=== PATIENT | female | born 1965 | race Caucasian/White ===

== ENCOUNTER 2017-07-12 07:55 | Observation (INO) | payer BC, OTHER ==
[~2017-07-12] VITALS: Ht 167.6 cm; Wt 128.8 kg
[~2017-07-12 07:55] MED LIST: ALLOPURINOL300 MG PO; ATENOLOL50 MG PO; COLCRYS0.6 MG PO; CYCLOBENZAPRINE5 MG PEG; GLUCOSAMINE CH1 EAC5 PO; HYDROCHLOROTHIA25 MG PO; LISINOPRIL10 MG PO; MOBIC15 MG OD; NORCO 5-325 TA1 EACH PO; OMEPRAZOLE40 MG PO
[2017-07-12] MEDS ORDERED: ASPIRIN 81 MG CHEW TAB PO ONE (08:30)
[2017-07-12 08:42] LABS: BASOPHILS # (AUTO) 0.1 (0.0-0.1); BASOPHILS % 0.8 % (0.0-1.0); HEMATOCRIT 40.6 % (34.2-44.1); HEMOGLOBIN 14.2 g/dL (12.0-16.0); LYMPHOCYTES % 27.1 % (18.0-39.1); MEAN CORPUSCULAR HEMOGLOBIN 28.6 pg (28-32); MEAN CORPUSCULAR VOLUME 81.9 fL (81-99); MONOCYTES # (AUTO) 0.5 (0.2-0.8); MONOCYTES % 6.3 % (4.4-11.3); NEUTROPHILS # (AUTO) 4.8 (2.1-6.9); NEUTROPHILS % 65.5 % (38.7-80.0); PLATELET COUNT 282 x10e3/uL (140-360); RED BLOOD COUNT 4.96 x10e6/uL (3.6-5.1); RED CELL DISTRIBUTION WIDTH 13.2 % (11.7-14.4)
[2017-07-12 08:59] LABS: ALANINE AMINOTRANSFERASE 29 IU/L (0-55); ALBUMIN 3.8 g/dL (3.5-5.0); ALBUMIN/GLOBULIN RATIO 1.2 (0.8-2.0); ALKALINE PHOSPHATASE 97 IU/L (40-150); ANION GAP 13.6 mmol/L (8-16); BLOOD UREA NITROGEN 12 mg/dL (7-26); BUN/CREATININE RATIO 20 (6-25); CALCIUM 9.9 mg/dL (8.4-10.2); CARBON DIOXIDE 28 mmol/L (22-29); CHLORIDE 106 mmol/L (98-107); CREATINE KINASE 42 IU/L (29-168); CREATININE, SERUM 0.59 mg/dL (0.57-1.11); EST GLOMERULAR FILTRATION RATE > 60 ML/MIN (60-); GLUCOSE 115 mg/dL (74-118); POTASSIUM 3.6 mmol/L (3.5-5.1); SODIUM 144 mmol/L (136-145)
--- NOTE | 2017-07-12 09:14 | Diagnostic Imaging Report ---
PROCEDURE: CHEST SINGLE (PORTABLE) COMPARISON: Patients [facility], DX, CHEST 2 VIEWS, 08/27/2016, 7:10. INDICATIONS: CHEST PAIN FINDINGS: LUNGS: No consolidations or edema. PLEURA: No effusions or pneumothorax. HEART \T\ MEDIASTINUM: The heart is within normal size-limits. BONES \T\ SOFT TISSUES: No acute findings. There are degenerative changes of the spine. CONCLUSION: No acute thoracic abnormality. Rahul Hussein D.O. Dictated by: Rahul Hussein D.O. on 07/12/2017 at 9:16 Electronically approved by: Rahul Hussein D.O. on 07/12/2017 at 9:16
[2017-07-12] MEDS ORDERED: METOPROLOL TART25 MG PO (10:17)
[2017-07-12] MEDS ORDERED: ZINC30 M1 PO (10:17)
[2017-07-12] MEDS ORDERED: MOBIC7.5 MG PO (10:17)
[2017-07-12] MEDS ORDERED: CO Q10200 MG PO (10:17)
[2017-07-12] MEDS ORDERED: COLCRYS0.6 MG PO (10:17)
[2017-07-12] MEDS ORDERED: VITAMIN B-121000 MCG PO (10:17)
[2017-07-12] MEDS ORDERED: MUPIROCIN22 GM TOP (10:17)
[2017-07-12] MEDS ORDERED: LYRICA75 MG PO (10:17)
[2017-07-12] MEDS ORDERED: ALEVE220 M1 PO (10:17)
[2017-07-12] MEDS ORDERED: VITAMIN D3400 UNIT (10:17)
[2017-07-12] MEDS ORDERED: TYLENOL EXTRA500 MG PO (10:17)
[2017-07-12] MEDS ORDERED: LIDOCAINE-PRILO30 GM (10:17)
--- OUTSIDE RECORDS SUMMARY | 2017-07-12 10:39 | XMS REPORT ---
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 Allergies, Adverse Reactions, Alerts This patient has no known allergies or adverse reactions. Medications This patient has no known medications. Results Test Description Test Time Test Comments Text Results Atomic Results Result Comments CHEST SINGLE (PORTABLE) [place] [id number] Patient Name: DAVID MALAVE MR #: [id number] : 1965 Age/Sex: 51/F Req #: [id number] Adm Physician: Ordered by: GAVIN MONTEIRO MD Report #: [id number] Location: ER Room/Bed: Procedure: [id number] DX/CHEST SINGLE (PORTABLE) Exam Date: 07/12/17 Exam Time: 0830 REPORT STATUS: Signed PROCEDURE: CHEST SINGLE (PORTABLE) COMPARISON: [facility], DX, CHEST 2 VIEWS , 08/27/2016, 7:10. INDICATIONS: CHEST PAIN FINDINGS: LUNGS: No consolidations or edema. PLEURA: No effusions or pneumothorax. HEART T MEDIASTINUM: The heart is within normal size-limits. BONES T SOFT TISSUES: No acute findings. There are degenerative changes of the spine. CONCLUSION: No acute thoracic abnormality. Aye Turner D.O. Dictated by: Aye Turner D.O. on 07/12/2017 at 9: 16 Electronically approved by: Aye Turner D.O. on 07/12/2017 at 9:16 Dictated By: AYE TURNER DO 5 Transcribed By: SOFYA on 07/12/17915 COPY TO: GAVIN MONTEIRO MD
[2017-07-12 11:55] VITALS: BP 144/67
[2017-07-12 12:00] VITALS: BP 144/67
[2017-07-12 12:27] VITALS: BP 144/67
[2017-07-12] MEDS ORDERED: METOCLOPRAMIDE HCL 10 MG/2ML VIAL IV SCH (14:00)
[2017-07-12] MEDS ORDERED: HYDRALAZINE HCL 20 MG/ML VIAL IV PRN (16:00)
[2017-07-12] MEDS ORDERED: LISINOPRIL 10 MG TAB PO SCH (16:00)
[2017-07-12] MEDS: METOCLOPRAMIDE HCL 10 MG TAB PO SCH (16:30)
[2017-07-12 17:07] VITALS: BP 115/59
[2017-07-12] MEDS: FAMOTIDINE 20 MG TAB PO SCH (17:30)
[2017-07-12 17:36] LABS: CREATINE KINASE 33 IU/L (29-168)
--- NOTE | 2017-07-12 17:37 | History and Physical ---
PRIMARY CARE PROVIDER: Dr. Patricio Mandel. CHIEF COMPLAINT: Chest pain. HISTORY OF PRESENT ILLNESS: Ms. Galicia is a 51-year-old lady who comes in complaining of chest pain that has been on and off for the last 2 weeks. Sometimes it seems to be exacerbated by activity or exertion and better with rest. She does have a little shortness of breath associated with it. She also admits to acid reflux as well. She does have a history of hypertension and a very strong family history of heart disease. REVIEW OF SYSTEMS: She denies fever, chills or weight loss. She denies sinus congestion or sore throat. She has chest pain as noted. No palpitations, no diaphoresis. She has had some mild dyspnea with exertion. She denies wheezing or cough or baseline shortness of breath at rest. She denies abdominal pain, nausea, vomiting or melena. She does have gastroesophageal reflux. She denies dysuria or flank pain. She denies rash or pruritus. She denies joint pain or swelling. She does have arthritis, chronic gouty arthritis but currently is asymptomatic. She denies bleeding or bruising. She denies headache, vertigo or loss of consciousness. She denies depression, agitation, homicide or suicidal ideation. PAST MEDICAL HISTORY: Significant for longstanding hypertension, osteoarthritis and gout. MEDICATIONS: Regular medications include Allopurinol 300 mg daily, lisinopril 20 mg daily, Lyrica 75 mg at bedtime, Tylenol as needed, colchicine as needed for acute gout flare-ups, hydrochlorothiazide 25 mg daily, meloxicam 7.5 mg daily, metoprolol 25 mg daily, omeprazole 40 mg daily. She also takes CoQ10, Naprosyn as needed and zinc picolinate. ALLERGIES: She has no known drug allergies. FAMILY HISTORY: Significant for father dying at age 68 from a myocardial infarction, sudden cardiac at age 68. Her mother is alive in her 70s with significant coronary artery disease, has had multiple stents and has atrial fibrillation. She has a couple of siblings that have hypertension but no evidence of heart disease yet. She has had surgery on her left Achilles tendon. She denies any other surgery. SOCIAL HISTORY: The patient is . Yakut is her primary language. She does not smoke, drink or use illegal drugs. Has never smoked and she is independently functioning. PHYSICAL EXAM PSYCHIATRIC: She is alert and oriented times 3 with normal mood and affect. CONSTITUTIONAL: She has a normal body habitus. Is in no acute distress. VITAL SIGNS: Blood pressure 144/67. Pulse 82 and regular. Respiratory rate 20. O2 sat 97% on room air. Temperature 95.2. HEENT: Head is atraumatic. Eyes are anicteric with clear conjunctiva. Ears and nares are without erythema or discharge. Oropharynx is clear. NECK: Is supple. No mass or thyromegaly. LYMPHATIC SYSTEM: She has no palpable cervical, axillary or inguinal adenopathy. CARDIOVASCULAR: Her heart has a regular rate rhythm without murmur or extra heart sound. She has no carotid bruit. She has no peripheral edema. She has palpable dorsal pedal pulses. RESPIRATORY: Lungs are clear to auscultation and percussion with normal respiratory effort. GASTROINTESTINAL: Her abdomen is soft without organomegaly, masses or tenderness. She has normal bowel sounds present. CUTANEOUS: Her skin is warm and dry to the touch with no rash or skin breakdown. MUSCULOSKELETAL: Her joints are normal alignment without erythema or swelling. She has no calf tenderness. NEUROLOGIC: Exam is nonfocal with intact cranial nerves and no motor or sensory deficits. DIAGNOSTIC STUDIES: Chest x-ray shows no acute disease. EKG is completely normal. First troponin is less than 0.001. Her BNP is 15.7. Her chemistry shows normal electrolytes, CO2 28, creatinine 0.59, BUN 12 for a normal GFR, calcium is 9.9, glucose is 115. Transaminases, bilirubin and alk phos are normal. CBC shows a white count of 7.33 with normal differential, hemoglobin 14.2, hematocrit 40.6 and platelet count 282,000. IMPRESSION AND PLAN 1. Chest pain, rule out acute coronary syndrome. The patient will get serial cardiac enzymes. She has been started on aspirin 325 mg daily. Will check a lipid profile and consult cardiology for a nuclear stress test. 2. Hypertension. Well controlled on current medications. Will continue lisinopril and hydrochlorothiazide as well as p.r.n. hydralazine as needed. 3. Gastroesophageal reflux disease. The patient will be started on, instead of omeprazole, will give the patient Pepcid and Reglan twice a day before meals. 4. Gout. The patient is asymptomatic at the moment. Will continue her allopurinol. 5. For prophylaxis the patient will be using sequential compression devices for deep vein thrombosis prophylaxis and Pepcid for gastrointestinal prophylaxis. Job#: [id number]
[2017-07-12 20:00] VITALS: BP 138/79
[2017-07-12] MEDS ORDERED: PREGABALIN 75 MG CAP PO SCH (21:00)
[2017-07-13] VITALS: BP 131/75
[2017-07-13 03:19] LABS: CREATINE KINASE 29 IU/L (29-168)
[2017-07-13 04:00] VITALS: BP 145/88
[2017-07-13 05:58] LABS: BASOPHILS # (AUTO) 0.1 (0.0-0.1); BASOPHILS % 0.6 % (0.0-1.0); HEMATOCRIT 37.3 % (34.2-44.1); LYMPHOCYTES # (AUTO) 2.1 (1.0-3.2); LYMPHOCYTES % 26.2 % (18.0-39.1); MEAN CORPUSCULAR HEMOGLOBIN 28.8 pg (28-32); MEAN CORPUSCULAR HGB CONC 34.9 g/dL (31-35); MEAN CORPUSCULAR VOLUME 82.5 fL (81-99); MONOCYTES # (AUTO) 0.5 (0.2-0.8); MONOCYTES % 5.7 % (4.4-11.3); NEUTROPHILS # (AUTO) 5.4 (2.1-6.9); NEUTROPHILS % 67.3 % (38.7-80.0); PLATELET COUNT 241 x10e3/uL (140-360); RED BLOOD COUNT 4.52 x10e6/uL (3.6-5.1); RED CELL DISTRIBUTION WIDTH 13.1 % (11.7-14.4)
[2017-07-13 06:17] LABS: ANION GAP 13.2 mmol/L (8-16); BLOOD UREA NITROGEN 12 mg/dL (7-26); BUN/CREATININE RATIO 20 (6-25); CALCIUM 9.3 mg/dL (8.4-10.2); CARBON DIOXIDE 28 mmol/L (22-29); CHLORIDE 109 mmol/L (98-107); CREATININE, SERUM 0.59 mg/dL (0.57-1.11); EST GLOMERULAR FILTRATION RATE > 60 ML/MIN (60-); GLUCOSE 115 mg/dL (74-118); MAGNESIUM 1.4 MG/DL (1.3-2.1); POTASSIUM 4.2 mmol/L (3.5-5.1); SODIUM 146 mmol/L (136-145)
[2017-07-13 06:31] LABS: CHOL/HDL RATIO 4.6 (3.0-3.6)
[2017-07-13 06:39] LABS: THYROID STIMULATING HORMONE 0.747 uIU/mL (0.350-4.940)
[2017-07-13 07:30] VITALS: BP 145/88
[2017-07-13 07:31] VITALS: BP 134/86
[2017-07-13] MEDS: METOCLOPRAMIDE HCL 10 MG TAB PO SCH (08:30)
[2017-07-13] MEDS: FAMOTIDINE 20 MG TAB PO SCH (08:30)
[2017-07-13] MEDS ORDERED: LISINOPRIL 20 MG TAB PO SCH (09:00)
[2017-07-13] MEDS ORDERED: PANTOPRAZOLE 40 MG 10ML VIAL IV SCH (09:00)
[2017-07-13] MEDS ORDERED: HYDROCHLOROTHIAZIDE 25 MG TAB PO SCH (09:00)
[2017-07-13] MEDS ORDERED: ASPIRIN 325 MG TAB EC PO SCH (09:00)
[2017-07-13] MEDS ORDERED: ALLOPURINOL 300 MG TAB PO SCH (09:00)
--- NOTE | 2017-07-13 09:00 | Consultation ---
DATE OF CONSULTATION: July 12, 2017 CARDIOLOGY CONSULTATION REASON FOR CONSULTATION: Chest pain. HPI: This is a morbidly obese 51-year-old female that presented with chest pain. According to the patient, she has been having chest pain off and on for the last 2-3 weeks. She stated the chest pain got worse yesterday that she decided to come into the emergency room for evaluation. She described it as a constant pressure on a scale of 5/10 that got exacerbated with activity and gets better with rest. She also stated that it was accompanied with shortness of breath. Her troponin times 3 was negative. EKG showed no S/T abnormalities. Chest x-ray was normal. PAST MEDICAL HISTORY: Hypertension, osteoarthritis, gout, and fibromyalgia. PAST SURGICAL HISTORY: Achilles tendon surgery. FAMILY HISTORY: Positive for CAD. SOCIAL HISTORY: No smoking. No drinking. She lives at home with her . MEDICATIONS: See med list. ALLERGIES: SHE IS NOT ALLERGIC TO ANY MEDICATION. REVIEW OF SYSTEMS: Negative except those mentioned above. PHYSICAL EXAMINATION VITAL SIGNS: Temperature 97, heart rate 78, blood pressure 134/86, respirations 21, oxygen saturation 96% on room air. GENERAL: She is alert, awake and oriented times 3. HEENT: Mucous membrane moist. NECK: Supple. LUNGS: Bilateral clear to auscultation. CARDIOVASCULAR: S1 and S2 present. ABDOMEN: Soft. NEUROLOGICAL: Intact. EXTREMITIES: With no edema. LABS: Sodium 146, potassium 4.2, chloride 109, CO2 28, BUN 12, creatinine 0.59, glucose 115. White blood cells 8.04, hemoglobin 13, hematocrit 37.3, and platelets 241,000. IMPRESSION 1. Chest pain. 2. Hypertension. 3. Osteoarthritis. 4. Gout. 5. History of fibromyalgia. ASSESSMENT AND PLAN: She is pending an echocardiogram to assess the LV and valve function. Troponin times 3 was negative. She stated the chest is better today. Recommended cardiac stress test, but she wants to follow up as an outpatient. Will continue aspirin and nitrates. Further cardiac workup pending clinical course. Thank you for this consultation. DICTATED BY ROSETTA BUCK NP Job#: [id number]
[2017-07-13] MEDS ORDERED: ACETAMINOPHEN 325 MG TAB PO NR (11:45)
[2017-07-13] MEDS ORDERED: FAMOTIDINE20 MG PO (11:57)
[2017-07-13] MEDS ORDERED: ASPIRIN ENTERI325 MG PO (11:57)
[2017-07-13] MEDS ORDERED: FENOFIBRATE145 MG PO (11:57)
[2017-07-13] MEDS ORDERED: METOCLOPRAMIDE10 MG PO (11:57)
--- NOTE | 2017-07-14 00:29 | Discharge Summary ---
ADMISSION DIAGNOSES 1. Chest pain, rule out acute coronary syndrome. 2. Hypertension. 3. Gastroesophageal reflux disease. 4. Gout. DISCHARGE DIAGNOSES 1. Chest pain, rule out acute coronary syndrome. 2. Hypertension. 3. Gastroesophageal reflux disease. 4. Gout. 5. Hypernatremia. 6. Hypertriglyceridemia. HISTORY: Patient has a history of hypertension, OA, and gout. HOSPITAL COURSE: A 51-year-old female complains of chest pain on and off for the last 2 weeks, sometimes it is exacerbated by activity and better with rest. She does have a little shortness of breath associated with it and she also has acid reflux. On admission, the patient was started on aspirin and cardiology consulted for stress test. Patient refused stress test and said she will follow up outpatient. Lipid profile was checked with a triglyceride level of 152, cholesterol 193, LDL of 121, and HDL of 42. Patient was restarted on home meds for hypertension, was started on Reglan and Pepcid in the hospital and discontinued omeprazole which she takes at home. She also continued allopurinol for her gout. Patient's troponins were negative times 3. Chest pain resolved. Chest x-ray negative. Per cardiology, patient is okay to discharge home and follow up with stress test on Saturday. PLAN: Discussed with patient and who agreed. She will discharge home on aspirin, Reglan, Pepcid, and fenofibrate. She will follow up Saturday with cardiology and PCP in 1 to 2 weeks. Dictated by Sahra Barrera NP MOISES VELASCO MD Job#: [id number] CF
== END 2017-07-13 12:48 | disposition home or self-care (01) ==
LOC: ER 07:55 → ERHOLD 10:36 → IMCU 11:02
PROVIDERS: ADMIT Internal Medicine; ATTEND Internal Medicine
CPT/HCPCS: 36415; 71045; 80048; 80053; 80061; 82550; 82553; 83735; 83880; 84443; 84484; 85025; 93005; 93306; 99284; G0378; J2765

== ENCOUNTER 2017-08-30 12:49 | Emergency (ER) | payer BC ==
[~2017-08-30] VITALS: Ht 167.6 cm; Wt 122.5 kg
[~2017-08-30 12:49] MED LIST changes: +ALEVE220 M1 PO; +ASPIRIN ENTERI325 MG PO; +CO Q10200 MG PO; +FAMOTIDINE20 MG PO; +FENOFIBRATE145 MG PO; +LIDOCAINE-PRILO30 GM; +LYRICA75 MG PO; +METOCLOPRAMIDE10 MG PO; +METOPROLOL TART25 MG PO; +MOBIC7.5 MG PO; +MUPIROCIN22 GM TOP; +TYLENOL EXTRA500 MG PO; +VITAMIN B-121000 MCG PO; +VITAMIN D3400 UNIT; +ZINC30 M1 PO
[2017-08-30] MEDS ORDERED: PREDNISONE 20 MG TAB PO ONE (16:45)
[2017-08-30] MEDS ORDERED: KETOROLAC TROMETHAMINE 60 MG/2 ML VIAL IM ONE (16:45)
[2017-08-30] MEDS ORDERED: HYDROCODONE/APAP 10MG-325MG TAB PO ONE (16:45)
[2017-08-30 17:48] VITALS: BP 145/69
[2017-08-30 18:11] LABS: BILIRUBIN,URINE NEGATIVE (NEGATIVE); CLARITY,URINE CLEAR (CLEAR); COLOR,URINE YELLOW (YELLOW); KETONES,URINE NEGATIVE (NEGATIVE); LEUKOCYTE ESTERASE ,URINE NEGATIVE (NEGATIVE); NITRITE,URINE NEGATIVE (NEGATIVE); PROTEIN,URINE DIPSTICK NEGATIVE (NEGATIVE); URINE UROBILINOGEN 0.2 mg/dL (0.2 - 1)
[2017-08-30 18:21] LABS: EPITHELIAL CELLS,URINE FEW /LPF; RBC,URINE 0-5 /HPF (0-5); WBC,URINE (MAN) 0-5 /HPF (0-5)
== END 2017-08-30 18:08 | disposition home or self-care (01) ==
LOC: ER 12:49
DX: M54.5 Low back pain (principal); S39.012A Strain of muscle, fascia and tendon of lower back, initial encounter; I10 Essential (primary) hypertension; M10.9 Gout, unspecified; M79.7 Fibromyalgia
CPT/HCPCS: 81001; 99283; J1885

== ENCOUNTER → 2020-04-08 | Outpatient (CLI) | payer BC | END | disposition home or self-care (01) | LOC: CT 07:17 | PROVIDERS: ATTEND Internal Medicine | DX: R31.9 Hematuria, unspecified (principal); N20.0 Calculus of kidney | CPT/HCPCS: 74176 ==

== ENCOUNTER 2020-10-08 13:40 | Emergency (ER) | payer BC ==
[~2020-10-08] VITALS: Ht 167.6 cm; Wt 122.5 kg
[2020-10-08] MEDS ORDERED: HYDROCODONE/APAP 5MG-325MG TAB PO ONE (14:00)
== END 2020-10-08 14:53 | disposition home or self-care (01) ==
LOC: ER 13:56
DX: M25.512 Pain in left shoulder (principal); M25.511 Pain in right shoulder; M54.2 Cervicalgia; M62.838 Other muscle spasm; M10.9 Gout, unspecified; M79.7 Fibromyalgia; D68.2 Hereditary deficiency of other clotting factors
CPT/HCPCS: 99283